=== PATIENT | female | born 1985 | race Caucasian/White ===

== ENCOUNTER 2016-11-19 16:42 | Inpatient (IN) | payer OTHER ==
[~2016-11-19] VITALS: Ht 157.5 cm; Wt 53.0 kg
[2016-11-19] MEDS ORDERED: TRI-LO-SPRINTE1 EAC1 PO (17:01)
[2016-11-19 17:03] LABS: HEMATOCRIT 40.2 % (36.0-46.0); MCH 29.3 PG (29.0-34.0); MCHC 33.6 G/DL (30.0-36.0); MCV 87.4 FL (83-99); MEAN PLAT.VOLUME 10.1 uM^3 (9.5-12.4); PLATELET COUNT 250 K/uL (156-360); RBC DIS.WIDTH-CV 12.9 % (11.8-14.6); WHITE BLOOD COUNT 18.8 K/uL (4.1-10.2)
[2016-11-19 17:11] LABS: CHLORIDE 106 mEq/L (99-109); POTASSIUM 3.6 mEq/L (3.7-5.4); SODIUM 140 mEq/L (136-147)
[2016-11-19 17:14] LABS: GLUCOSE 93 mg/dL (70-99)
[2016-11-19 17:15] LABS: ANION GAP 10 MEQ/L (2-14); TOTAL BILIRUBIN 0.2 mg/dL (0.0-1.0)
[2016-11-19 17:17] LABS: ALKALINE PHOSPHATASE 35 IU/L (3-129); SERUM ETHYL ALCOHOL < 10 mg/dL
[2016-11-19 17:18] LABS: GFR ESTIMATE (CALCULATED) > 59 mL/min/; UREA NITROGEN (BUN) 13 mg/dL (9-23)
[2016-11-19 17:21] LABS: LIPASE 36 U/L (1.0-51.0)
[2016-11-19 17:27] LABS: QUANTITATIVE HCG < 4.0 MIU/ML
[2016-11-19 21:51] VITALS: BP 114/60
[2016-11-19 23:12] LABS: HEMATOCRIT 35.6 % (36.0-46.0); MCV 87.7 FL (83-99)
[2016-11-20] VITALS (7 sets, daily range): BP systolic 99–115; BP diastolic 54–74
[2016-11-20 09:32] LABS: HEMATOCRIT 36.5 % (36.0-46.0); MCH 29.3 PG (29.0-34.0); MCHC 32.9 G/DL (30.0-36.0); MCV 89.2 FL (83-99); PLATELET COUNT 190 K/uL (156-360); RBC DIS.WIDTH-CV 13.2 % (11.8-14.6); RBC DIS.WIDTH-SD 43.2 % (39-53); RED BLOOD COUNT 4.09 M/uL (3.80-5.20); WHITE BLOOD COUNT 10.7 K/uL (4.1-10.2)
[2016-11-20 16:21] LABS: HEMATOCRIT 34.8 % (36.0-46.0); MCV 89.7 FL (83-99)
[2016-11-21 04:11] VITALS: BP 105/62
[2016-11-21 07:00] LABS: HEMATOCRIT 35.3 % (36.0-46.0); MCH 29.2 PG (29.0-34.0); MCHC 32.3 G/DL (30.0-36.0); MCV 90.5 FL (83-99); MEAN PLAT.VOLUME 9.9 uM^3 (9.5-12.4); PLATELET COUNT 169 K/uL (156-360); RBC DIS.WIDTH-CV 13.3 % (11.8-14.6); RBC DIS.WIDTH-SD 43.5 % (39-53); WHITE BLOOD COUNT 11.7 K/uL (4.1-10.2)
[2016-11-21 08:33] VITALS: BP 117/69
[2016-11-21 11:47] VITALS: BP 132/79
[2016-11-21 15:26] VITALS: BP 101/65
[2016-11-21 20:31] VITALS: BP 106/62
[2016-11-21 23:11] VITALS: BP 95/62
[2016-11-22 04:32] VITALS: BP 102/59
[2016-11-22 08:04] VITALS: BP 120/73
[2016-11-22 09:00] VITALS: BP 109/65
[2016-11-22] MEDS ORDERED: FLEXERIL10 MG PO (09:34)
[2016-11-22] MEDS ORDERED: PERCOCET 5/31 TABLET PO (09:34)
[2016-11-22] MEDS ORDERED: COLACE100 MG PO (09:34)
== END 2016-11-22 10:34 | disposition home or self-care (01) | DRG 964 ==
LOC: EME 16:42 → TRA 16:42 → EDOF 19:47 → 4EAST 19:47
PROVIDERS: Emergency Medicine; Surgery
DX: S22.41XA Multiple fractures of ribs, right side, initial encounter for closed fracture (principal); S27.321A Contusion of lung, unilateral, initial encounter; S36.115A Moderate laceration of liver, initial encounter; S32.019A Unspecified fracture of first lumbar vertebra, initial encounter for closed fracture; S50.311A Abrasion of right elbow, initial encounter; W22.09XA Striking against other stationary object, initial encounter; Y93.23 Activity, snow (alpine) (downhill) skiing, snowboarding, sledding, tobogganing and snow tubing; Y92.838 Other recreation area as the place of occurrence of the external cause; K80.20 Calculus of gallbladder without cholecystitis without obstruction; Z79.3 Long term (current) use of hormonal contraceptives; Z88.2 Allergy status to sulfonamides
CPT/HCPCS: 71020; 71260; 72040; 72128; 72131; 74177; 80053; 83690; 84702; 85014; 85018; 85027; 99281; 99285; G0480; J2405; J3010; J7030; J7120